=== PATIENT | female | born 1985 | race American Indian/Alaskan Native ===

== ENCOUNTER 2018-07-06 19:28 | Emergency (ER) | payer MEDICAID ==
--- NOTE | 2018-07-06 20:11 | Emergency Department Report ---
Abscess Boil HPI - HPI Chief Complaint: Urogenital-Female Stated Complaint: RIGHT BREAST PAIN Time Seen by Provider: 07/06/18 20:07 Duration: 5 Days Location: Other Severity: Mild History: Yes Pain, No Fever, No Purulent Drainage, No Numbness, No Foreign Body, No Previous History, No Insect Bite HPI: r breast pain around nipple. no redness or drainage. no abscess. no fever. LMP last week. not . no bite or trauma to breast. no weight loss. no other symptoms. Home Medications: Previous Rx's Medication Instructions Recorded Last Taken Type Naproxen [Naprosyn] 500 mg PO BID PRN #20 tablet 07/06/18 Unknown Rx cephALEXin [Keflex] 500 mg PO Q12HR #20 cap 07/06/18 Unknown Rx Allergies/Adverse Reactions: Allergies Allergy/AdvReac Type Severity Reaction Status Date / Time iodine Allergy Angioedema Verified 07/06/18 19:44 ED Review of Systems ROS: Stated complaint: RIGHT BREAST PAIN Other details as noted in HPI Comment: All other systems reviewed and negative ED Past Medical Hx - Past Medical History Previous Medical History?: No - Surgical History Past Surgical History?: No - Social History Smoking Status: Current Every Day Smoker Substance Use Type: None - Medications Home Medications: Home Medications Medication Instructions Recorded Confirmed Last Taken Type Naproxen [Naprosyn] 500 mg PO BID PRN #20 tablet 07/06/18 Unknown Rx cephALEXin [Keflex] 500 mg PO Q12HR #20 cap 07/06/18 Unknown Rx ED Abscess Boil Physical Exam - Exam General: Vital signs noted. No distress. Alert and acting appropriately. Exam: Yes Tenderness, Yes Normal Neurologic Exam, Yes Normal Circulation, No Fluctuance, No Surrounding Cellulites/Erythema, No Lymphangitis, No Crepitation Critical care attestation.: If time is entered above; I have spent that time in minutes in the direct care of this critically ill patient, excluding procedure time. ED Medical Decision Making - Medical Decision Making no abscess will treat with antibiotics and warm compresses discussed with pt need for mamogram and obgyn follow up dc home with dc plan of care Vital Signs 07/06/18 20:14 Temperature 97.5 F L Pulse Rate 84 Respiratory 18 Rate Blood Pressure 112/64 [Right] O2 Sat by Pulse 100 Oximetry ED Disposition Clinical Impression: Cellulitis Disposition: DC-01 TO HOME OR SELFCARE Is pt being admited?: No Does the pt Need Aspirin: No Condition: Stable Instructions: Cellulitis (ED) Prescriptions: cephALEXin [Keflex] 500 mg PO Q12HR #20 cap Naproxen [Naprosyn] 500 mg PO BID PRN #20 tablet PRN Reason: Pain Referrals: ROMEL LARA CNM [Staff Physician] - 3-5 Days FREDDY SAMANO MD [Staff Physician] - 3-5 Days Time of Disposition: 20:20
[2018-07-06 20:31] VITALS: BP 112/64
== END 2018-07-06 20:45 | disposition home or self-care (01) ==
LOC: ED 19:28
DX: N61.0 Mastitis without abscess (principal); F17.200 Nicotine dependence, unspecified, uncomplicated
CPT/HCPCS: 99282